=== PATIENT | female | born 1955 | race Two or more races ===

== ENCOUNTER 2022-10-09 00:42 | Inpatient (IN) | payer MEDICAID ==
[~2022-10-09] VITALS: Ht 157.5 cm; Wt 77.0 kg
[2022-10-09] MEDS ORDERED: ACETAMINOPHEN 325 MG TAB PO ONE (01:30)
[2022-10-09 02:21] LABS: Basophils # (auto) 0 10 ^3/uL (0-0.2); Basophils % (auto) 0.3 % (0.0-2.0); Eosinophils # (auto) 0.2 10 ^3/uL (0-0.8); Eosinophils % (auto) 1.4 % (0.0-7.0); Hematocrit 41.1 % (36.0-46.0); Hemoglobin 13.9 g/dL (12.2-16.2); Lymphocytes # (auto) 2.2 10 ^3/uL (0.4-5.4); Lymphocytes % (auto) 16.7 % (10.0-50.0); Mean Corpuscular Hemoglobin 29.4 pg (28.0-32.0); Mean Corpuscular Hgb Conc. 33.8 g/dL (32.0-36.0); Mean Corpuscular Volume 86.9 fL (80.0-100.0); Monocytes # (auto) 0.8 10 ^3/uL (0-1.3); Monocytes % (auto) 6.2 % (0.0-12.0); Neutrophils # (auto) 10.1 10 ^3/uL (1.6-8.6); Neutrophils % (auto) 75.4 % (37.0-80.0); Red Blood Cells 4.73 10^6/uL (4.0-5.20); Red Cell Distribution Width 14.7 % (11.8-14.3); White Blood Cell 13.3 10^3/uL (4.4-10.8)
[2022-10-09 02:30] LABS: INR 1.1 (0.9-1.15); Partial Thromboplastin Time 26.3 sec (24.6-33.4)
[2022-10-09 02:37] LABS: Albumin 3.6 g/dL (3.4-5.0); BUN/Creatinine Ratio 16.5 (10.0-20.0); Calcium 9.2 mg/dL (8.5-10.1); Potassium 3.8 mmol/L (3.5-5.1)
[2022-10-09 02:40] LABS: Bilirubin, Total 0.5 mg/dL (0.2-1.0); Lactic Acid w/Reflex 2.2 mmol/L (0.4-2.0); Total Protein 7.4 g/dL (6.4-8.2)
[2022-10-09] MEDS ORDERED: cefTRIAXone 1GM/50ML D5W 50 ML IV ONE (06:00)
[2022-10-09] MEDS ORDERED: AZITHROMYCIN 500MG/ 250ML 250 ML IV ONE (06:00)
[2022-10-09] MEDS ORDERED: ALBUTEROL SULF 2.5 MG/0.5ML(0.5%) NEB SOLN NEB ONE (06:00)
[2022-10-09] MEDS ORDERED: DexAMETHasone SOD PHOS 10MG/1ML VIAL INJ IV ONE (06:00)
[2022-10-09] MEDS ORDERED: SODIUM CHLORIDE 0.9% 2,200 ML IV ONE (06:00)
[2022-10-09] MEDS ORDERED: ALBUTEROL SULF 2.5 MG/0.5ML(0.5%) NEB SOLN NEB PRN (09:15)
[2022-10-09] MEDS ORDERED: ACETAMINOPHEN 325 MG TAB PO PRN (09:15)
[2022-10-09] MEDS ORDERED: HYDROcodone-ACET 5/325MG TAB PO PRN (09:15)
[2022-10-09] MEDS ORDERED: MORPHINE SULFATE INJ 2 MG/ml SYRG IV PRN ×2 (09:15)
[2022-10-09] MEDS ORDERED: NITROGLYCERIN 0.4 MG SL TAB SL PRN (09:15)
[2022-10-09] MEDS ORDERED: IPRATROPIUM BROM 0.5 MG/2.5ML INH SOL NEB PRN (09:15)
[2022-10-09 10:02] LABS: Cholesterol 122 mg/dL (< 200); HDL Cholesterol 32 mg/dL (40-59); LDL Cholesterol 63 mg/dL (< 100); Triglycerides 90 mg/dL (< 150)
[2022-10-09] MEDS: ENOXAPARIN SOD 40 MG/0.4 ML SYRINGE SC SCH ×2 (10:34→10:43)
[2022-10-09] MEDS: SODIUM CHLORIDE 0.9% 1,000 ML IV SCH ×2 (10:34→18:56)
[2022-10-09 11:18] LABS: Urine Bacteria NONE SEEN /hpf (None Seen); Urine Blood Negative /uL (Negative); Urine Specific Gravity 1.028 (1.001-1.035); Urine WBC 1 /hpf (0 - 5)
[2022-10-09] MEDS: IPRATROPIUM BROM 0.5 MG/2.5ML INH SOL NEB SCH ×2 (12:14→18:34)
[2022-10-09] MEDS: ALBUTEROL SULF 2.5 MG/0.5ML(0.5%) NEB SOLN NEB SCH ×2 (12:14→18:34)
[2022-10-09] MEDS ORDERED: DEXTROSE (50%) 50ML SYRG IV PRN (13:00)
[2022-10-09] MEDS ORDERED: ATOR40TA52 PO (13:02)
[2022-10-09] MEDS ORDERED: LOSA-69 PO (13:02)
[2022-10-09 15:50] VITALS: BP 112/66
[2022-10-09 16:00] VITALS: BP 122/62
[2022-10-09 16:45] LABS: Lactic Acid w/Reflex 6.7 mmol/L (0.4-2.0)
[2022-10-09] MEDS ORDERED: SODIUM CHLORIDE 0.9% 1,000 ML IV ONE (17:30)
[2022-10-09] MEDS: ACCU-CHEK COMFORT CURVE STRIP VI SCH ×2 (17:38→21:47)
[2022-10-09] MEDS: InsuLIN REG 1unit/0.01ml Soln (100units/ml) SC SCH ×2 (17:39→21:49)
[2022-10-09 22:00] VITALS: BP 132/66
[2022-10-09] MEDS ORDERED: hydrALAZINE HCL 20 MG/ML VL IV PRN (22:00)
[2022-10-09] MEDS: INSULIN LANTUS (GLARGINE) 1 /0.01ml (100units/ml) SC SCH (22:22)
[2022-10-10] MEDS: ALBUTEROL SULF 2.5 MG/0.5ML(0.5%) NEB SOLN NEB SCH ×4 (03:13→19:01)
[2022-10-10] MEDS: IPRATROPIUM BROM 0.5 MG/2.5ML INH SOL NEB SCH ×4 (03:13→19:01)
[2022-10-10 05:00] VITALS: BP 140/66
[2022-10-10] MEDS: SODIUM CHLORIDE 0.9% 1,000 ML IV SCH (05:15)
[2022-10-10 05:29] LABS: Basophils # (auto) 0 10 ^3/uL (0-0.2); Basophils % (auto) 0.1 % (0.0-2.0); Eosinophils # (auto) 0 10 ^3/uL (0-0.8); Hematocrit 36.8 % (36.0-46.0); Hemoglobin 12.2 g/dL (12.2-16.2); Lymphocytes # (auto) 1.9 10 ^3/uL (0.4-5.4); Lymphocytes % (auto) 13.8 % (10.0-50.0); Mean Corpuscular Hemoglobin 29.2 pg (28.0-32.0); Mean Corpuscular Hgb Conc. 33.1 g/dL (32.0-36.0); Mean Corpuscular Volume 88.1 fL (80.0-100.0); Monocytes # (auto) 0.9 10 ^3/uL (0-1.3); Monocytes % (auto) 6.5 % (0.0-12.0); Neutrophils # (auto) 10.8 10 ^3/uL (1.6-8.6); Neutrophils % (auto) 79.6 % (37.0-80.0); Red Blood Cells 4.18 10^6/uL (4.0-5.20); Red Cell Distribution Width 14.6 % (11.8-14.3); White Blood Cell 13.6 10^3/uL (4.4-10.8)
[2022-10-10 05:43] LABS: Albumin 2.8 g/dL (3.4-5.0); BUN/Creatinine Ratio 15.5 (10.0-20.0); Calcium 8.3 mg/dL (8.5-10.1); Potassium 3.9 mmol/L (3.5-5.1)
[2022-10-10 05:46] LABS: Bilirubin, Total 0.4 mg/dL (0.2-1.0); Total Protein 6.1 g/dL (6.4-8.2)
[2022-10-10] MEDS: ACCU-CHEK COMFORT CURVE STRIP VI SCH ×4 (06:24→22:00)
[2022-10-10] MEDS: InsuLIN REG 1unit/0.01ml Soln (100units/ml) SC SCH ×4 (06:26→21:22)
[2022-10-10 08:30] VITALS: BP 115/77
[2022-10-10] MEDS: cefTRIAXone 1GM/50ML D5W 50 ML IV SCH (08:44)
[2022-10-10 09:00] VITALS: BP 115/77
[2022-10-10] MEDS: ENOXAPARIN SOD 40 MG/0.4 ML SYRINGE SC SCH (09:01)
[2022-10-10] MEDS: AZITHROMYCIN 500MG/ 250ML 250 ML IV SCH (09:28)
[2022-10-10] MEDS ORDERED: PANTOPRAZOLE 40 MG/10 ML VIAL INJ IV SCH (10:00)
[2022-10-10 12:13] VITALS: BP 123/53
[2022-10-10] MEDS ORDERED: DEXTROSE (50%) 50ML SYRG IV PRN (12:15)
[2022-10-10] MEDS ORDERED: predniSONE 20 MG TAB PO ONE (12:15)
[2022-10-10] MEDS ORDERED: busPIRone HCL 10 MG TAB PO ONE (12:15)
[2022-10-10] MEDS ORDERED: SERTRALINE HCL 50 MG TAB PO ONE (12:15)
[2022-10-10 16:35] VITALS: BP 119/70
[2022-10-10] MEDS: busPIRone HCL 10 MG TAB PO SCH (21:13)
[2022-10-10] MEDS: ATORVASTATIN 20 MG TAB PO SCH (21:14)
[2022-10-10] MEDS: MONTELUKAST SODIUM 10 MG TAB PO SCH (21:14)
[2022-10-10] MEDS: INSULIN LANTUS (GLARGINE) 1 /0.01ml (100units/ml) SC SCH (21:23)
[2022-10-10 22:00] VITALS: BP 115/67
[2022-10-11] MEDS: IPRATROPIUM BROM 0.5 MG/2.5ML INH SOL NEB SCH ×2 (00:09→06:28)
[2022-10-11] MEDS: ALBUTEROL SULF 2.5 MG/0.5ML(0.5%) NEB SOLN NEB SCH ×2 (00:09→06:28)
[2022-10-11 05:00] VITALS: BP 116/82
[2022-10-11] MEDS: InsuLIN REG 1unit/0.01ml Soln (100units/ml) SC SCH ×4 (06:05→21:40)
[2022-10-11] MEDS: ACCU-CHEK COMFORT CURVE STRIP VI SCH ×4 (06:06→21:36)
[2022-10-11] MEDS: cefTRIAXone 1GM/50ML D5W 50 ML IV SCH (08:29)
[2022-10-11 08:30] VITALS: BP 138/66
[2022-10-11 09:00] VITALS: BP 138/66
[2022-10-11] MEDS ORDERED: ZINC SULFATE 220mg CAP or TAB PO ONE (10:15)
[2022-10-11] MEDS ORDERED: ASCORBIC ACID 500 MG TAB PO ONE (10:15)
[2022-10-11] MEDS: PANTOPRAZOLE 40 MG TAB PO SCH (10:27)
[2022-10-11] MEDS: busPIRone HCL 10 MG TAB PO SCH ×2 (10:27→21:34)
[2022-10-11] MEDS: predniSONE 20 MG TAB PO SCH (10:27)
[2022-10-11] MEDS: AZITHROMYCIN 500MG/ 250ML 250 ML IV SCH (10:28)
[2022-10-11] MEDS: SERTRALINE HCL 50 MG TAB PO SCH (10:28)
[2022-10-11] MEDS: ENOXAPARIN SOD 40 MG/0.4 ML SYRINGE SC SCH (10:28)
[2022-10-11 13:00] VITALS: BP 143/84
[2022-10-11] MEDS: ALBUTEROL SULF HFA 90MCG INH 200DOSE IN SCH ×2 (14:41→21:50)
[2022-10-11 16:34] VITALS: BP 132/96
[2022-10-11] MEDS: MONTELUKAST SODIUM 10 MG TAB PO SCH (21:35)
[2022-10-11] MEDS: ATORVASTATIN 20 MG TAB PO SCH (21:35)
[2022-10-11] MEDS: INSULIN LANTUS (GLARGINE) 1 /0.01ml (100units/ml) SC SCH (21:41)
[2022-10-11 22:00] VITALS: BP 136/67
[2022-10-12 05:00] VITALS: BP 125/70
[2022-10-12] MEDS: ACCU-CHEK COMFORT CURVE STRIP VI SCH ×4 (06:21→21:28)
[2022-10-12] MEDS: InsuLIN REG 1unit/0.01ml Soln (100units/ml) SC SCH ×4 (06:22→21:50)
[2022-10-12] MEDS: ALBUTEROL SULF HFA 90MCG INH 200DOSE IN SCH ×3 (06:28→22:47)
[2022-10-12 08:13] LABS: Basophils # (auto) 0.1 10 ^3/uL (0-0.2); Eosinophils # (auto) 0.1 10 ^3/uL (0-0.8); Hematocrit 37.9 % (36.0-46.0); Hemoglobin 12.9 g/dL (12.2-16.2); Lymphocytes # (auto) 3.3 10 ^3/uL (0.4-5.4); Mean Corpuscular Hemoglobin 29.6 pg (28.0-32.0); Mean Corpuscular Volume 87.1 fL (80.0-100.0); Monocytes # (auto) 0.6 10 ^3/uL (0-1.3); Monocytes % (auto) 6.2 % (0.0-12.0); Neutrophils # (auto) 6.1 10 ^3/uL (1.6-8.6); Neutrophils % (auto) 59.8 % (37.0-80.0); Nucleated Red Blood Cells % 0.1 %; Red Blood Cells 4.35 10^6/uL (4.0-5.20); Red Cell Distribution Width 15.1 % (11.8-14.3); White Blood Cell 10.2 10^3/uL (4.4-10.8)
[2022-10-12 08:30] VITALS: BP 126/67
[2022-10-12 08:31] VITALS: BP 125/70
[2022-10-12 08:32] LABS: BUN/Creatinine Ratio 15.4 (10.0-20.0); Calcium 8.5 mg/dL (8.5-10.1)
[2022-10-12] MEDS: cefTRIAXone 1GM/50ML D5W 50 ML IV SCH (08:34)
[2022-10-12 09:00] VITALS: BP 126/67
[2022-10-12] MEDS: predniSONE 20 MG TAB PO SCH (10:02)
[2022-10-12] MEDS: busPIRone HCL 10 MG TAB PO SCH ×2 (10:02→21:46)
[2022-10-12] MEDS: ASCORBIC ACID 500 MG TAB PO SCH (10:02)
[2022-10-12] MEDS: ZINC SULFATE 220mg CAP or TAB PO SCH (10:03)
[2022-10-12] MEDS: SERTRALINE HCL 50 MG TAB PO SCH (10:03)
[2022-10-12] MEDS: AZITHROMYCIN 500MG/ 250ML 250 ML IV SCH (10:03)
[2022-10-12] MEDS: PANTOPRAZOLE 40 MG TAB PO SCH (10:03)
[2022-10-12] MEDS: ENOXAPARIN SOD 40 MG/0.4 ML SYRINGE SC SCH (10:03)
[2022-10-12] MEDS ORDERED: SALINE 0.65 % NASAL SPRAY 45ML BOTTLE EACHNOSTRI ONE (10:15)
[2022-10-12] MEDS ORDERED: SUCRALFATE 1 GM/10 ML ORAL SUSP PO ONE (10:15)
[2022-10-12] MEDS: SALINE 0.65 % NASAL SPRAY 45ML BOTTLE EACHNOSTRI SCH ×3 (11:42→21:52)
[2022-10-12 13:00] VITALS: BP 104/68
[2022-10-12] MEDS: SUCRALFATE 1 GM/10 ML ORAL SUSP PO SCH (17:26)
[2022-10-12] MEDS: ATORVASTATIN 20 MG TAB PO SCH (21:46)
[2022-10-12] MEDS: INSULIN LANTUS (GLARGINE) 1 /0.01ml (100units/ml) SC SCH (21:52)
[2022-10-12] MEDS: MONTELUKAST SODIUM 10 MG TAB PO SCH (21:52)
[2022-10-12 22:00] VITALS: BP 129/63
[2022-10-13 05:00] VITALS: BP 131/63
[2022-10-13] MEDS: SUCRALFATE 1 GM/10 ML ORAL SUSP PO SCH (06:08)
[2022-10-13] MEDS: InsuLIN REG 1unit/0.01ml Soln (100units/ml) SC SCH ×2 (06:10→12:40)
[2022-10-13] MEDS: SALINE 0.65 % NASAL SPRAY 45ML BOTTLE EACHNOSTRI SCH ×2 (06:10→12:41)
[2022-10-13] MEDS: ACCU-CHEK COMFORT CURVE STRIP VI SCH ×2 (06:10→12:40)
[2022-10-13] MEDS: ALBUTEROL SULF HFA 90MCG INH 200DOSE IN SCH ×2 (07:38→14:19)
[2022-10-13 08:25] VITALS: BP 130/73
[2022-10-13] MEDS: cefTRIAXone 1GM/50ML D5W 50 ML IV SCH (08:25)
[2022-10-13 08:59] VITALS: BP 131/71
[2022-10-13] MEDS: ASCORBIC ACID 500 MG TAB PO SCH (09:52)
[2022-10-13] MEDS: ZINC SULFATE 220mg CAP or TAB PO SCH (09:52)
[2022-10-13] MEDS: busPIRone HCL 10 MG TAB PO SCH (09:53)
[2022-10-13] MEDS: ENOXAPARIN SOD 40 MG/0.4 ML SYRINGE SC SCH (09:53)
[2022-10-13] MEDS: SERTRALINE HCL 50 MG TAB PO SCH (09:53)
[2022-10-13] MEDS: PANTOPRAZOLE 40 MG TAB PO SCH (09:53)
[2022-10-13] MEDS ORDERED: predniSONE 20 MG TAB PO SCH (10:00)
[2022-10-13] MEDS ORDERED: AZITHROMYCIN 250 MG TAB PO SCH (10:00)
[2022-10-13] MEDS ORDERED: AZIT250T9 PO (10:29)
[2022-10-13] MEDS ORDERED: ASPI1TAB20 PO (10:29)
[2022-10-13] MEDS ORDERED: SUCR1SUS10 PO (10:29)
[2022-10-13] MEDS ORDERED: ALBUAER3 IN (10:29)
[2022-10-13] MEDS ORDERED: PANT40T PO (10:29)
[2022-10-13] MEDS ORDERED: PRED20TA2 PO (10:29)
[2022-10-13] MEDS ORDERED: ASCO500T11 PO (10:29)
[2022-10-13 11:40] VITALS: BP 131/71
== END 2022-10-13 14:10 | disposition home or self-care (01) | DRG 720 ==
LOC: EDBD 00:42 → ER 00:42 → TELE 09:15 → TELE-EAST 14:45
PROVIDERS: ADMIT Registered Nurse; ATTEND Internal Medicine
DX: A41.89 Other specified sepsis (principal); J96.01 Acute respiratory failure with hypoxia; J12.82 Pneumonia due to coronavirus disease 2019; E86.0 Dehydration; E11.65 Type 2 diabetes mellitus with hyperglycemia; U07.1 COVID-19; K21.9 Gastro-esophageal reflux disease without esophagitis; J45.909 Unspecified asthma, uncomplicated; Z20.822 Contact with and (suspected) exposure to COVID-19; I10 Essential (primary) hypertension; E03.9 Hypothyroidism, unspecified; F32.A Depression, unspecified; Z79.82 Long term (current) use of aspirin; Z79.899 Other long term (current) drug therapy
CPT/HCPCS: 36415; 71045; 71275; 80048; 80053; 80061; 81001; 82962; 83036; 83605; 83690; 83880; 84443; 84484; 85025; 85610; 85730; 87040; 87086; 87426; 93005; 93970; 94640; 96361; 96374; C9113; G0378; J0696; J1100; J1815